=== PATIENT | female | born 1975 | race Caucasian/White ===

== ENCOUNTER 2020-01-15 08:21 | Emergency (ER) | payer SELFPAY ==
[~2020-01-15] VITALS: Ht 167.6 cm; Wt 80.0 kg
[~2020-01-15 08:21] MED LIST: LEVO500T2 PO
[2020-01-15 08:46] VITALS: BP 145/91
[2020-01-15] MEDS ORDERED: BENZ-16 PO (09:13)
== END 2020-01-15 10:02 | disposition home or self-care (01) ==
LOC: ER 08:21
DX: J06.9 Acute upper respiratory infection, unspecified (principal); Z20.828 Contact with and (suspected) exposure to other viral communicable diseases; Z87.442 Personal history of urinary calculi; F17.200 Nicotine dependence, unspecified, uncomplicated; Z72.89 Other problems related to lifestyle; Z79.899 Other long term (current) drug therapy
CPT/HCPCS: 36415; 87635; 99283

== ENCOUNTER 2020-11-14 18:07 | Emergency (ER) | payer MEDICAID, OTHER ==
[~2020-11-14] VITALS: Ht 170.2 cm; Wt 72.7 kg
[~2020-11-14 18:07] MED LIST changes: +PHEN-716 PO
[2020-11-14] MEDS ORDERED: ibuprofen 200mg tablet PO ONE (18:50)
[2020-11-14 19:11] VITALS: BP 138/96
== END 2020-11-14 19:13 | disposition home or self-care (01) ==
LOC: ER 18:08
DX: G40.909 Epilepsy, unspecified, not intractable, without status epilepticus (principal); R51.9 Headache, unspecified; Z87.440 Personal history of urinary (tract) infections; Z87.442 Personal history of urinary calculi; Z86.69 Personal history of other diseases of the nervous system and sense organs; Z72.89 Other problems related to lifestyle; Z88.1 Allergy status to other antibiotic agents; Z79.899 Other long term (current) drug therapy
CPT/HCPCS: 99283